=== PATIENT | female | born 1945 | race Caucasian/White ===

== ENCOUNTER 2019-06-09 05:29 | Observation (INO) | payer MEDICARE, OTHER ==
[2019-06-09] VITALS (8 sets, daily range): BP systolic 119–148; BP diastolic 49–62; PULSE 56–85; TEMP 97.7–97.8
[~2019-06-09] VITALS: Ht 152.4 cm; Wt 60.6 kg
[2019-06-09 06:15] LABS: BASO % 0.3 % (0.0-2.0); EOS % 0.2 % (0-4.0); GRAN # 7.4 (1.4-6.5); GRAN % 83.3 % (42.2-75.2); HEMATOCRIT 43.2 % (37.0-47.0); HEMOGLOBIN 14.7 g/dl (12.5-16.0); LYMPH # 1.2 (1.2-3.4); LYMPH % 13.1 % (20.0-51.0); MEAN CELL VOLUME 93 fl (80.0-100.0); MEAN CORPUSCULAR HEMOGLOBIN 32 pg (27.0-31.0); MEAN CORPUSCULAR HGB CONC 34 g/dl (33.0-37.0); MEAN PLATELET VOLUME 9.3 fl (7.4-10.4); MONO # 0.3 (0.1-0.6); MONO % 2.8 % (1.7-9.3); PLATELET COUNT 286 K/mm3 (130-400); RED BLOOD COUNT 4.66 M/mm3 (4.10-5.30)
[2019-06-09] MEDS ORDERED: TOPROL XL 50MG50 MG PO (06:19)
[2019-06-09] MEDS ORDERED: LIPITOR 40MG TA40 MG PO (06:20)
[2019-06-09] MEDS ORDERED: NORVASC 5MG5 MG/TAB PO (06:20)
[2019-06-09] MEDS ORDERED: PRINIVIL10 MG PO (06:21)
[2019-06-09 06:27] LABS: ALANINE AMINOTRANSFERASE 15 U/L (9-52); ALBUMIN 4.5 gm/dL (3.5-5.0); ALKALINE PHOSPHATASE 66 U/L (50-136); ANION GAP 10 mmol/L (7-16); AST,SGOT 23 U/L (15-37); BILIRUBIN,TOTAL 0.7 mg/dL (0.0-1.0); BLOOD UREA NITROGEN 12 mg/dL (7-17); CALCIUM 8.9 mg/dL (8.4-10.2); CARBON DIOXIDE 26 mmol/L (22-30); CHLORIDE 104 mmol/L (98-107); CREATINE KINASE 31 U/L (30-135); CREATININE, serum 0.65 (0.52-1.25); GLUCOSE 125 mg/dL (74-106); LIPASE 53 U/L (23-300); POTASSIUM 3.8 mmol/L (3.4-5.0); SODIUM 140 mmol/L (137-145); TOTAL PROTEIN 7.1 gm/dL (6.4-8.2)
[2019-06-09 06:40] LABS: TROPONIN-I < 0.012 ng/mL (0.000-0.035)
[2019-06-09 06:54] LABS: COLLECTION METHOD CLEAN CATCH
[2019-06-09 07:01] LABS: PH 7 (5-8); SQUAMOUS EPITHELIAL 0-2 /hpf; URINE APPEARANCE Clear; URINE BACTERIA None Seen /hpf; URINE BILIRUBIN Negative (NEGATIVE); URINE BLOOD 1+ (NEGATIVE); URINE COLOR Straw; URINE GLUCOSE Negative (NEGATIVE); URINE KETONE Negative (NEGATIVE); URINE LEUKOCYTE ESTERASE Negative (NEGATIVE); URINE NITRATE Negative (NEGATIVE); URINE PROTEIN(semi-quant) Negative (NEGATIVE); URINE RBC 0-2 /hpf; URINE UROBILINOGEN Negative (NEGATIVE)
[2019-06-09] MEDS ORDERED: ZOFRAN ODT8 MG PO (07:12)
[2019-06-09] MEDS ORDERED: FLEXERIL 1010 MG/TAB PO (07:12)
[2019-06-09] MEDS ORDERED: PRAVACHOL 40MG40 MG PO (10:52)
[2019-06-09] MEDS ORDERED: LOPRESSOR 550 MG/TAB PO (10:53)
--- NOTE | 2019-06-09 11:10 | NUR ---
Patient up to room 324 by steacher from OR. Transfers to bed independently. Family at bedside. Denies pain at this time. Patient NPO at this time. Fluids infusing via gravity to right AC. Denies further needs at this time.
--- NOTE | 2019-06-09 18:38 | NUR ---
Patient down to OR by bed.
--- NOTE | 2019-06-09 19:14 | NUR ---
Report off to Sacha NGUYEN.
--- NOTE | 2019-06-09 20:45 | NUR ---
Pt. to the floor from PACU. Pt. is A&OX3, assessment complete. IV to rt. ac patent, IV fluids infusing per orders. Pt. feeling nauseated, gave zofran. Pt. also reports feeling a bit anxious. Four abd. lap sites noted, CDI with bandaids. Pt. denies further needs at this time, Call light within reach.
[2019-06-10] VITALS (7 sets, daily range): BP systolic 117–148; BP diastolic 39–74; PULSE 55–65; TEMP 98.1–98.8
--- NOTE | 2019-06-10 10:03 | NUR ---
Initial visit; Patient thanked Trust Manager for offering God's blessings and for letting her know that she will be offered Holy Communion during her stay at [facility].
--- NOTE | 2019-06-10 10:31 | NUR ---
JEANNETTE met with the patient to discuss discharge plan. The patient lives in [place] with her , Leroy. She states that she just recently moved here from [place]. She reports independence with ADLs and does not have any DME. The patient states that she does not have a PCP here yet and states she plans to look around for one and find out who she is in network with. She receives her medications at the [facility] and she reports no difficulties obtaining her meds. The patient does not have advanced directives in EMR, but she states that she does have them completed. She states her daughter, Cassie Kilpatrick, is he DPOA-HC. The patient plans to return home with her upon discharge. No additional needs at this time.
--- NOTE | 2019-06-10 11:00 | NUR ---
Patient has been sleeping most the morning. She stated she just is not feeling well today. She is having nausea but stated everytime she gets medication for it, she gets worse. She stated she is having some pain but does not want to take anything for it. She is wanting to just sleep at the monent. No other changes at this time. Call light within reach.
--- NOTE | 2019-06-10 18:28 | NUR ---
Patient is staying one more night due to having nausea and generalized weakness. She has not been able to eat much during the day. She stated she does not tolerate anesthesia very well. Patient is going to try some liquids this evening. No other changes at this time. Call light within reach.
--- NOTE | 2019-06-10 21:00 | NUR ---
Pt. sitting up in bed watching TV at this time. Pt. is A&OX3, assessment complete. INT to rt. AC patent. Four abd. lap sites noted, edges well approximated. Pt. denies pain or other needs, call light within reach.
[2019-06-11 04:45] VITALS: BP 121/95; BP 141/59; PULSE 52; PULSE 82; TEMP 98.3
--- NOTE | 2019-06-11 06:06 | NUR ---
Pt. slept well. Remains A&XO3. INT to rt. ac remains patent. Pt. denies pain or other needs.
--- NOTE | 2019-06-11 06:40 | NUR ---
resting in bed and ready to take a shower, bedside shift report received from PATRICK Goncalves
--- NOTE | 2019-06-11 07:31 | NUR ---
had shower and now in bed watching TV, full assessment completed, see interventions for further info, denies needs
[2019-06-11 09:15] VITALS: BP 120/40; PULSE 62; TEMP 98.2
--- NOTE | 2019-06-11 11:00 | NUR ---
independent in room and denies needs
--- NOTE | 2019-06-11 12:00 | NUR ---
ambulating in [place] independently, daughter at side
[2019-06-11 12:35] VITALS: BP 113/41; PULSE 53; TEMP 98.3
--- NOTE | 2019-06-11 15:15 | NUR ---
up and getting dressed, discharge instructions given and verbalizes understanding
--- NOTE | 2019-06-11 15:50 | NUR ---
discharged ambulatory
== END 2019-06-11 15:50 | disposition home or self-care (01) ==
LOC: COL.ER 05:29 → SURG 08:55
PROVIDERS: Emergency Medicine; ADMIT Surgery
DX: K80.12 Calculus of gallbladder with acute and chronic cholecystitis without obstruction (principal); E78.00 Pure hypercholesterolemia, unspecified; I10 Essential (primary) hypertension; Z90.710 Acquired absence of both cervix and uterus; Z85.828 Personal history of other malignant neoplasm of skin; Z88.0 Allergy status to penicillin; Z88.1 Allergy status to other antibiotic agents
CPT/HCPCS: G0378; J1100; J1885; J1956; J2405; J2704; J3010; J3480; J7030; J7120; Q9967

== ENCOUNTER → 2021-03-16 | Outpatient (CLI) | payer MEDICARE, OTHER ==
[~2021-03-16] MED LIST: FLEXERIL 1010 MG/TAB PO; LIPITOR 40MG TA40 MG PO; LOPRESSOR 550 MG/TAB PO; NORVASC 5MG5 MG/TAB PO; PRAVACHOL 40MG40 MG PO; PRINIVIL10 MG PO; TOPROL XL 50MG50 MG PO; ZOFRAN ODT8 MG PO
== END ==
LOC: MC.RAD 09:44
DX: Z12.31 Encounter for screening mammogram for malignant neoplasm of breast (principal); N63.11 Unspecified lump in the right breast, upper outer quadrant; N64.89 Other specified disorders of breast

== ENCOUNTER → 2021-04-07 | Outpatient (CLI) | payer MEDICARE, OTHER | LOC: MC.RAD 07:41 | DX: N63.11 Unspecified lump in the right breast, upper outer quadrant (principal); N64.89 Other specified disorders of breast ==

== ENCOUNTER → 2021-10-10 | Outpatient (CLI) | payer MEDICARE, OTHER ==
[~2021-10-10] MED LIST changes: +PERCOCET 325 MG1 TA2 PO
== END ==
LOC: MC.RAD 10:00
DX: N64.9 Disorder of breast, unspecified (principal)

== ENCOUNTER 2021-10-24 13:26 | Emergency (ER) | payer MEDICARE, OTHER ==
[~2021-10-24] VITALS: Ht 152.4 cm; Wt 57.7 kg
[~2021-10-24 13:26] MED LIST changes: -PERCOCET 325 MG1 TA2 PO
[2021-10-24 13:40] VITALS: TEMP 96.8
[2021-10-24] MEDS ORDERED: PERCOCET 325 MG1 TA2 PO (14:33)
[2021-10-24 14:37] VITALS: BP 165/62; PULSE 71
== END 2021-10-24 14:37 | disposition home or self-care (01) ==
LOC: COL.ER 13:26
DX: S52.122A Displaced fracture of head of left radius, initial encounter for closed fracture (principal); S52.615A Nondisplaced fracture of left ulna styloid process, initial encounter for closed fracture; S52.91XA Unspecified fracture of right forearm, initial encounter for closed fracture; I10 Essential (primary) hypertension; E78.5 Hyperlipidemia, unspecified; Z79.899 Other long term (current) drug therapy; W19.XXXA Unspecified fall, initial encounter; Y93.73 Activity, racquet and hand sports

== ENCOUNTER → 2022-04-11 | Outpatient (CLI) | payer MEDICARE, OTHER ==
[~2022-04-11] MED LIST changes: +PERCOCET 325 MG1 TA2 PO
== END ==
LOC: MC.RAD 09:54
DX: Z12.31 Encounter for screening mammogram for malignant neoplasm of breast (principal)

== ENCOUNTER 2024-02-08 19:40 | Emergency (ER) | payer MEDICARE, OTHER ==
[~2024-02-08] VITALS: Ht 152.4 cm; Wt 59.1 kg
[2024-02-08 22:02] VITALS: BP 138/62; PULSE 90
== END 2024-02-08 22:02 | disposition home or self-care (01) ==
LOC: COL.ER 19:40
DX: S16.1XXA Strain of muscle, fascia and tendon at neck level, initial encounter (principal); S20.211A Contusion of right front wall of thorax, initial encounter; V43.52XA Car driver injured in collision with other type car in traffic accident, initial encounter; Y92.410 Unspecified street and highway as the place of occurrence of the external cause